=== PATIENT | female | born 1980 | race African-American/Black ===

== ENCOUNTER 2019-07-17 00:41 | Emergency (ER) | payer BC, OTHER ==
--- NOTE | 2019-07-17 01:14 | PDOC ---
History of Present Illness - General Stated Complaint: ABSCESS BOIL Time Seen by Provider: 07/17/19 01:14 - History of Present Illness Initial Comments: 38 year old female with no PMH presented to ED for known abscess, that began to drain tonight. Pt reported she completed 10 days of Cipro today. Pt reported she has an appointment with a Surgeon on Wednesday for I&D. Pt reported no overlying redness, denied fever, vomiting, malaise. Pt reported she has been controlling her pain with Tylenol over the counter. Past History - Past Medical History Allergies/Adverse Reactions: Allergies Allergy/AdvReac Type Severity Reaction Status Date / Time No Known Allergies Allergy Verified 07/17/19 01:29 Review of Systems - Review of Systems Able to Perform ROS?: Yes Comments:: General: denied fever, chills, generalized weakness. HEENT: denied sore throat, rhinorrhea, ear pain. Cardiovascular: denied chest pain, palpitations, syncope, diaphoresis. Respiratory: denied shortness of breath, cough, sputum production, hemoptysis. Gastrointestinal: denied abdominal pain, nausea, vomiting, diarrhea, constipation, blood in stool. Genitourinary: denied dysuria, increased urinary frequency, hematuria, urinary incontinence, flank pain. Back: denied back pain. Musculoskeletal: denied joint pain, muscle pain, joint swelling. Neurological: denied headache, dizziness, numbness, tingling, weakness. Integumentary: admitted to abscess. denied rash, laceration, abrasion. Hematologic/Lymphatic: denied bruising or bleeding. *Physical Exam - Physical Exam Comments: Constitutional: Well-nourished, Well-developed, appearing stated age. HEENT: head is normocephalic, atraumatic. EOMI. PERRLA. Neck: supple. Full ROM. Cardiovascular: regular heart rhythm. no murmurs. no pericardial friction rub. Chest: 4x4 cm area of induration to the substernal area, with central fluctuance 1x1 cm. no surrounding erythema. actively draining purulent material. Respiratory: clear to auscultation bilaterally. no crackles, rhonchi or wheezing. no stridor. Gastrointestinal: soft, nontender. normal bowel sounds. no rebound, guarding, masses. Extremities: peripheral pulses intact. no lower extremity edema. Neurological: CN 2-12 grossly intact. moves all four extremities. Psych: awake, alert, oriented x3. follows commands. answers questions appropriately. Medical Decision Making - Medical Decision Making 38 year old female with above PMH presented to ED for known abscess, that started spontaneously draining last night. Pt has appt with surgeon Wednesday. Initial Vital Signs Temp Pulse Resp BP Pulse Ox 98.4 F 108 H 17 133/83 98 07/17/19 00:41 07/17/19 00:41 07/17/19 00:41 07/17/19 00:41 07/17/19 00:41 Afebrile. Mild tachycardia with mild hypertension. Pt is in pain. No tachypnea. No hypoxia on room air. Labs ordered: wound culture Imaging ordered: none Medications ordered: none Pt advised to F/U with Surgery on Wednesday. Pt advised to apply warm compresses. Pt agreed with plan for care. Pt discharged. *DC/Admit/Observation/Transfer Diagnosis at time of Disposition: Abscess - Discharge Dispostion Disposition: HOME Condition at time of disposition: Stable Decision to Admit order: No - Referrals - Patient Instructions Printed Discharge Instructions: DI for Skin Abscess Additional Instructions: Follow up with your surgeon on Wednesday. Apply warm compresses to the area. Take Tylenol over the counter for pain. Take as advised on label. NEVER take any more than 4000 mg a day of Tylenol. Return to the Emergency Department for increasing redness, shortness of breath, difficulty breathing, fever, vomiting, or any other new, worsening or concerning symptoms. - Post Discharge Activity Forms/Work/School Notes: Back to Work
--- NOTE | 2019-07-17 01:32 | PDOC ---
Documentation entered by Suresh Cole SCRIBE, acting as scribe for Amy Brooks MD. Amy Brooks MD: This documentation has been prepared by the Douglas black Daniel, SCRIBE, under my direction and personally reviewed by me in its entirety. I confirm that the documentation accurately reflects all work, treatment, procedures, and medical decision making performed by me. Attending Attestation - Resident Resident Name: Luz Parmar - ED Attending Attestation I have performed the following: I have examined & evaluated the patient, The case was reviewed & discussed with the resident, I agree w/resident's findings & plan, Exceptions are as noted - HPI HPI: 07/17/19 01:24 obese 38 yo female has been taking clindamycin and ciprofloxaicin for barbara past 10 days for a skin abscess over her lower sternum . Tonight it started draining purulence so she came to the ER PMH had been type 2 DM but lost weight and no longer has to take medications 07/17/19 01:27 - Physicial Exam PE: 07/17/19 01:28 wnwd 38 yo female p/w draining skin abscess lower her lower sternum head ncat neck supple lungs cta b/l Skin abscess over xiphoid area that is draining purulence, no erythema over the area,no cellulitis cvs [id number] abd protuberant ,nontender extremities no deformities no flank pain neuro no focal neuro deficits - Medical Decision Making 07/17/19 01:30 pt has no fever orchills she just finished 10 days of antibiotics skin abscess w no signs of cellulitis she already had an appt this Wednesday with surgery imp draining skin abscess plan keep Wednesday's appt w surgery
[2019-07-17 01:37] VITALS: BMI 48.4
[2019-07-17 01:55] VITALS: BP 128/67; PULSE 78; TEMP 98.2
== END 2019-07-17 01:46 | disposition home or self-care (01) ==
LOC: JER 00:41
DX: L02.213 Cutaneous abscess of chest wall (principal)
CPT/HCPCS: 87070; 87205; 99282-25